=== PATIENT | female | born 1995 | race Caucasian/White ===

== ENCOUNTER 2016-05-25 22:22 | Emergency (ER) | payer BC, OTHER ==
[~2016-05-25] VITALS: Ht 180.3 cm; Wt 82.5 kg
[~2016-05-25 22:22] MED LIST: ALBUAER19 INH; BCPILLS PO
[2016-05-25 22:24] VITALS: Ht 180.3 cm; Wt 82.5 kg
[2016-05-25] MEDS ORDERED: ACETAMINOPHEN 500 MG TAB PO STA (23:12)
[2016-05-25] MEDS ORDERED: FAMOTIDINE 20MG/102 ML D5W IV STA (23:12)
[2016-05-25] MEDS ORDERED: DiphenhydrAMINE HCL 50 MG/ML VIAL IV STA (23:12)
[2016-05-25] MEDS ORDERED: DICYCLOMINE HCL 10 MG/ML 2 ML AMP IM ONE (23:15)
[2016-05-25 23:36] LABS: MEAN CELL VOLUME 84.4 fL (80-100); MEAN CORPUSCULAR HEMOGLOBIN 29.2 pg (25-34); MEAN CORPUSCULAR HGB CONC 34.6 g/dl (32-36); MEAN PLATELET VOLUME 10.3 fL (7.4-10.4); PLATELET COUNT 177 K/uL (130-400); RED BLOOD COUNT 4.86 M/uL (4.2-5.4); WHITE BLOOD COUNT 9.68 K/uL (4.8-10.8)
[2016-05-25 23:48] VITALS: TEMP 37.4
[2016-05-25] MEDS ORDERED: METOCLOPRAMIDE HCL INJ 5 MG/ML 2 ML VIAL ONE (23:49)
[2016-05-25 23:50] LABS: PREG INTERNAL NEGATIVE QC NEG CLEAR BACKGROUND; PREG INTERNAL POSITIVE QC POS CONTROL LINE
[2016-05-25] MEDS ORDERED: METOCLOPRAMIDE HCL INJ 5 MG/ML 2 ML VIAL IV STA (23:50)
[2016-05-25 23:56] LABS: BASO % 0.1 %; BASO ABS # 0.01 K/uL (0-0.2); BUN/CREATININE RATIO 11.6 (10-20); CALCIUM 8.5 mg/dl (8.5-10.1); COMPLETE YES; CREATININE 0.95 mg/dl (0.60-1.20); EOS % 0.2 %; IG% 0.2 %; LYMPH % 5.3 %; LYMPH ABS # 0.51 K/uL (1.2-3.4); MONO % 3.4 %; NEUT % 90.8 %; POTASSIUM 3.6 mmol/L (3.5-5.1)
[2016-05-26 00:36] VITALS: BP 124/76; PULSE 95; O2SAT 97
[2016-05-26] MEDS ORDERED: ONDANSETRON HOME PACK 4MG OD TAB PO ONE (01:00)
--- NOTE | 2016-05-26 03:00 | EMERGENCY ROOM VISIT NOTE ---
History First contact with patient: 23:09 Chief Complaint: VOMITING Stated Complaint: VOMITING AND DIARRHEA Nursing Triage Summary: Vomiting and diarrhea x4 hours. Headache, chills, and achey feeling all over. History of Present Illness The patient is a 20 year old female who presents to the Emergency Room with complaints of nausea, vomiting, diarrhea, fever and chills with cough for the past day. Boyfriend was sick earlier this week with similar symptoms. Patient denies chest pain, dyspnea, abdominal pain, neck stiffness, sore throat. No recent antibiotics. No well water. Review of Systems See HPI for pertinent positives & negatives. A total of 10 systems reviewed and were otherwise negative. Past Medical/Surgical History Migraines, asthma Social History Smoking Status: Never Smoker Alcohol Use: none Drug Use: none Marital Status: single Occupation Status: employed Current/Historical Medications Scheduled Control Pills ( Control Pills), 1 TAB PO DAILY Scheduled PRN Albuterol Inhaler (Ventolin Inhaler), PUFFS INH Q4H PRN for Rescue/Asthma Allergies Coded Allergies: No Known Allergies (Verified , 10/07/15) Physical Exam Vital Signs Date Time Temp Pulse Resp B/P Pulse Ox O2 Delivery O2 Flow Rate FiO2 05/26/16 00:36 95 20 124/76 97 05/25/16 23:48 37.4 84 20 106/56 98 Room Air 05/25/16 22:24 37.6 98 20 132/80 96 Room Air Pain Rating (0-10): 0 Physical Exam VITALS: Vitals are noted on the nurse's note and reviewed by myself. Vital signs stable. GENERAL: Pleasant female, in no acute distress, nondiaphoretic, well-developed well-nourished. SKIN: The skin was without rashes, erythema, edema, or bruising. There is no tenting of the skin. Capillary reflex less than 2 seconds. HEAD: Normocephalic atraumatic. EARS: External auditory canals clear, tympanic membranes pearly mays without erythema or effusion bilaterally. EYES: Pupils equal round and reactive to light and accommodation. Conjunctivae without injection, sclerae without icterus. Extraocular movements intact. NOSE: Patent, turbinates without inflammation or discharge. No sinus tenderness. MOUTH: Mucous membranes mildly dry. Pharynx without erythema or exudate. Uvula midline. Airway patent. Tongue does not deviate. NECK: Supple without nuchal rigidity. No lymphadenopathy. No thyromegaly. Cervical spine is nontender. No JVD. HEART: Regular rate and rhythm without murmurs gallops or rubs. LUNGS: Clear to auscultation bilaterally without wheezes, rales or rhonchi. No dullness to percussion. No retractions or accessory muscle use. ABDOMEN: Positive bowel sounds x 4. Normal tympanic percussion. Soft, nontender, without masses or organomegaly. Chan sign negative. No guarding or rebound tenderness. No CVA tenderness MUSCULOSKELETAL: No muscle atrophy, erythema, or edema noted. NEURO: Patient was alert and oriented to person place and time. Normal sensation to light and sharp touch. No focal neurological deficits. Medical Decision & Procedures Laboratory Results 05/25/16 23:00 Red Blood Count 4.86, Mean Corpuscular Volume 84.4, Mean Corpuscular Hemoglobin 29.2, Mean Corpuscular Hemoglobin Concent 34.6, Mean Platelet Volume 10.3, Neutrophils (%) (Auto) 90.8, Lymphocytes (%) (Auto) 5.3, Monocytes (%) (Auto) 3.4, Eosinophils (%) (Auto) 0.2, Basophils (%) (Auto) 0.1, Neutrophils # (Auto) 8.79, Lymphocytes # (Auto) 0.51, Monocytes # (Auto) 0.33, Eosinophils # (Auto) 0.02, Basophils # (Auto) 0.01 05/25/16 23:00 Test 05/25/16 23:00 05/25/16 23:55 White Blood Count 9.68 K/uL (4.8-10.8) Red Blood Count 4.86 M/uL (4.2-5.4) Hemoglobin 14.2 g/dL (12.0-16.0) Hematocrit 41.0 % (37-47) Mean Corpuscular Volume 84.4 fL (80-100) Mean Corpuscular Hemoglobin 29.2 pg (25-34) Mean Corpuscular Hemoglobin Concent 34.6 g/dl (32-36) Platelet Count 177 K/uL (130-400) Mean Platelet Volume 10.3 fL (7.4-10.4) Neutrophils (%) (Auto) 90.8 % Lymphocytes (%) (Auto) 5.3 % Monocytes (%) (Auto) 3.4 % Eosinophils (%) (Auto) 0.2 % Basophils (%) (Auto) 0.1 % Neutrophils # (Auto) 8.79 K/uL (1.4-6.5) Lymphocytes # (Auto) 0.51 K/uL (1.2-3.4) Monocytes # (Auto) 0.33 K/uL (0.11-0.59) Eosinophils # (Auto) 0.02 K/uL (0-0.5) Basophils # (Auto) 0.01 K/uL (0-0.2) RDW Standard Deviation 40.5 fL (36.4-46.3) RDW Coefficient of Variation 13.3 % (11.5-14.5) Immature Granulocyte % (Auto) 0.2 % Immature Granulocyte # (Auto) 0.02 K/uL (0.00-0.02) Red Blood Cell Morphology Unremarkable Anion Gap 9.0 mmol/L (3-11) Est Creatinine Clear Calc Drug Dose 103.8 ml/min Estimated GFR () 98.5 Estimated GFR (Non- 85.0 BUN/Creatinine Ratio 11.6 (10-20) Calcium Level 8.5 mg/dl (8.5-10.1) Human Chorionic Gonadotropin, Qual NEG (NEG) Influenza Type A Antigen Neg for Influ A (NEG) Influenza Type B Antigen Neg for Influ B (NEG) Medications Administered Medications (Trade) Dose Ordered Sig/Feliciano Route Start Time Stop Time Status Last Admin Dose Admin Famotidine (Pepcid 20mg/100 ml) 20 mg ONE STAT IV 05/25/16 23:12 05/25/16 23:15 DC 05/25/16 23:44 20 MG Diphenhydramine HCl (Benadryl Inj) 12.5 mg NOW STAT IV 05/25/16 23:12 05/25/16 23:15 DC 05/25/16 23:42 12.5 MG Dicyclomine HCl (Bentyl Inj) 20 mg NOW ONCE IM 05/25/16 23:15 05/25/16 23:16 DC 05/25/16 23:42 20 MG Acetaminophen (Tylenol Tab) 1,000 mg NOW STAT PO 05/25/16 23:12 05/25/16 23:15 DC 05/25/16 23:43 1,000 MG Metoclopramide HCl (Reglan Inj) 10 mg NOW STAT IV 05/25/16 23:50 05/25/16 23:51 DC 05/25/16 23:50 10 MG Ondansetron HCl (ZOFRAN ODT 4MG Home Pack) 1 homepack UD ONCE PO 05/26/16 01:00 05/26/16 01:01 DC 05/26/16 01:00 1 HOMEPACK ED Course Prior records/ancillary studies reviewed. Triage Nursing notes reviewed. Additional history obtained from the family. The patient's history was concerning for nausea, vomiting, diarrhea, and cough. Differential diagnosis: Etiologies such as gastroenteritis, food borne illness, infections, appendicitis , diverticulitis, inflammatory bowel disease, obstruction, GI bleed, biliary pathology, as well as others were entertained. Physical examination findings: As above. Abdominal examination revealed no tenderness. Vital signs reviewed and revealed stable. ER treatment provided: IV hydration 1 L NSS. Reglan, Bentyl, Benadryl On reassessment the patient felt better. Patient was tolerating p.o. intake. Diagnostics interpretation by me: The labs revealed no worrisome leukocytosis or left slight abnormality. Negative influenza Imaging studies: Chest x-ray with no acute consolidation or pneumothorax or free air per my interpretation This appears to be consistent with vomiting and diarrhea most likely viral in etiology. Patient felt much better after being medicated as above. She did not have acute abdomen on exam. No pneumonia on x-ray. Negative flu. Boyfriend was sick earlier in the week with similar symptoms. Patient was advised to do clear liquid diet today and then progress as tolerated to bland diet tomorrow. She is advised to follow-up with family care in a few days or here in the ER sooner for high fevers, vomiting, abdominal pain, worsening signs or symptoms or as needed. By the evaluation outlined above emergent etiologies such as appendicitis, diverticulitis, obstruction, cardiac sources, mesenteric ischemia, aortic pathology, inflammatory bowel disease, renal colic, PUD, biliary pathology, UTI, as well as others were deemed relatively unlikely. The pt informed about the findings as listed above. All questions were answered and pleased with the treatment. Return instructions were outlined and the patient was discharged in stable condition. Outpatient prescription management: Zofran Referral: The patient was referred to their primary care physician for follow-up in 2 to 3 days for a recheck of the current condition. Medical Decision As above Impression Primary Impression: Nausea, vomiting, and diarrhea Departure Information Dispostion Home / Self-Care Condition GOOD Forms HOME CARE DOCUMENTATION FORM, Work Instructions, Return To Work: 2 days IMPORTANT VISIT INFORMATION Patient Instructions Vomit Diarrhea Self Care, My [facility] [employer] Additional Instructions DO NOT drive, drink alcohol, operate machinery, or perform dangerous activities today. You were given medications in the ER that can affect your ability to safely function or operate a vehicle. Zofran(odansetron) tablets 4mg: Take one and allow it to dissolve in your mouth every four to six hours as needed for nausea or vomiting. Ibuprofen(Motrin, Advil) may be used for fever or pain. Use 600mg every six hours as needed. Take with food. Avoid using more than 2400mg in a 24 hour period. Do not use 2400mg per day for more than three consecutive days without physician direction. Prolonged inappropriate use can lead to stomach upset or ulcers. (AND/OR) Acetaminophen(Tylenol) may be used for fever or pain. Use 1000mg every six hours as needed. Avoid using more than 3000mg in a 24 hour period. Rest and drink plenty of fluids as tolerated. Slow sips of water or sports drinks are recommended instead of large amounts all at once. Continue current medications. Once your stomach is settled start with a clear liquid diet (jello, soup broth, etc.) and then advance as tolerated. You should avoid full, heavy meals for about 24 hrs from the time your symptoms resolved. Return to the ER for persistent vomiting, fevers, abdominal pain, chest pains, difficulty breathing, black or bloody stools, worsening of your condition, or as needed. Follow up with your primary physician in 2-3 days for a recheck of your current condition. Work Instructions Return To Work: 2 days
--- NOTE | 2016-05-26 07:53 | DIAGNOSTIC IMAGING REPORT ---
TWO VIEW CHEST CLINICAL HISTORY: Cough and fever. FINDINGS: PA and lateral chest radiographs are compared to study dated 04/14/2013. The cardiomediastinal silhouette is unremarkable. Patchy airspace consolidation is suspected in the left upper lobe. The lungs are otherwise clear. No pleural effusion is identified. There is no pneumothorax. The bony thorax appears intact. IMPRESSION: Patchy airspace consolidation is seen in the left upper lobe. Correlate clinically for evidence of pneumonia. Radiographic follow-up to resolution is recommended. Electronically signed by: Carmine Shields M.D. 05/26/2016 7:51 AM Dictated Date/Time: 05/26/2016 7:50 AM
== END 2016-05-26 01:05 | disposition home or self-care (01) ==
LOC: C.EDB 22:23
DX: R11.2 Nausea with vomiting, unspecified (principal); R19.7 Diarrhea, unspecified; Z79.3 Long term (current) use of hormonal contraceptives